=== PATIENT | female | born 1945 | race Caucasian/White ===

== ENCOUNTER 2017-12-16 07:55 | Inpatient (IN) | payer MEDICARE ==
[~2017-12-16] VITALS: Ht 162.6 cm; Wt 68.5 kg
[~2017-12-16 07:55] MED LIST: ECHI400C16 PO; LYSI500C3 PO; MULT-1335 PO; OMEP-218 PO; VIT1CAPS33 PO; VITA-192 PO; [UNRECOGNIZED DRUG - CODE] PO; [UNRECOGNIZED DRUG - CODE] PO
--- NOTE | 2017-12-16 08:15 | ER Report ---
History and Physical Time Seen By MD: 08:05 Hx. of Stated Complaint: PATIENT REPORTS THAT SHE HAS HAD SHORTNESS OF BREATH SINCE LAST SUMMER. IT COMES AND GOES BUT TODAY IT IS REALLY BAD HPI/ROS CHIEF COMPLAINT: Shortness of breath HISTORY OF PRESENT ILLNESS: 9-year-old female comes emergency Department today with a complaint of shortness of breath. Patient states for the last 4-6 months she's been having worsening exertional dyspnea mild orthopnea and some PND. Patient states was 2 or 3 days she can barely walk up a flight of stairs and appendectomy more progressively short of breath. Patient denies any chest pain nausea vomiting diarrhea fever chills. Patient states that as the days roll forward she experiences shortness of breath with both exertion and with rest she says that when she tries to take care of versus and walk to the bar and she could barely get there without having to stop and catch her breath she winces sometimes when she sitting watching TV she gets short of breath this become far more frequent. Again no associated chest pain or additional complaints noted. REVIEW OF SYSTEMS: Respiratory: No cough, has dyspnea. Cardiovascular: No chest pain, no palpitations. Gastrointestinal: No vomiting, no abdominal pain. Musculoskeletal: No back pain. Allergies: Coded Allergies: nitrofurazone (Verified Adverse Reaction, Severe, FINGER SWELLS, EYES ITCH , 01/17/13) Home Meds Reported Medications Vit C/Vit E/Lutein/Min/[place]-3 (Ocuvite Softgel) 1 Each Capsule, 1 EACH PO QDAY 01/17/13 Cyanocobalamin (B12 Health Booster) 1,000 Mcg/15 Ml Oral.susp, 1000 MCG PO QDAY 01/17/13 Echinacea (Echinacea) 400 Mg Capsule, 400 MG PO BID 01/17/13 Vitamin E (Vitamin E) 400 Unit Capsule, 400 UNIT PO QDAY 01/17/13 Lysine (L-Lysine) 500 Mg Capsule, 500 MG PO BID 01/17/13 Biotin (BIOTIN (PT OWN)) 300 Mcg Tab, 300 MCG PO QDAY 01/17/13 Multivitamins W-Minerals (Multiple Vitamin) 1 Tab Tablet, 1 TAB PO QDAY 01/17/13 Omeprazole Magnesium (Prilosec Otc) 20 Mg Tablet.dr, 20 MG PO QDAY 01/17/13 Reviewed Nurses Notes: Yes Old Medical Records Reviewed: Yes Hx Substance Use Disorder: No Hx Alcohol Use: No Constitutional Vital Sign - Last 24 Hours 12/16/17 12/16/17 07:58 08:05 Temp 98.1 Pulse 92 Resp 24 Pulse Ox 70 O2 Delivery Room Air O2 Flow Rate 2.0 Physical Exam General Appearance: [The patient is alert, has no immediate need for airway protection and no current signs of toxicity.] [ ] Eyes: Pupils equal and round no injection. Respiratory: Chest is non tender, lungs are clear to auscultation. Cardiac: regular rate and rhythm [ ] Gastrointestinal: Abdomen is soft and non tender, no masses, bowel sounds normal. Musculoskeletal: Neck: Neck is supple and non tender. Extremities have full range of motion and are non tender. Skin: No rashes or lesions. [ ] DIFFERENTIAL DIAGNOSIS: After history and physical exam differential diagnosis was considered for pulmonary emboli congestive heart failure myocardial infarction pneumonia pneumothoraces aortic dissection Medical Decision Making Data Points Result Diagram: 12/16/17 0812/16/17 0805 Laboratory Hematology Test 12/16/17 08:05 Red Blood Count 4.42 M/uL (4.17-5.56) Mean Corpuscular Volume 92.4 fL (80.0-96.0) Mean Corpuscular Hemoglobin 31.3 pg (26.0-33.0) Mean Corpuscular Hemoglobin Concent 33.9 g/dL (32.0-36.0) Red Cell Distribution Width 13.1 % (11.5-14.5) Mean Platelet Volume 7.6 fL (7.2-11.1) Neutrophils (%) (Auto) 65.4 % (39.4-72.5) Lymphocytes (%) (Auto) 24.5 % (17.6-49.6) Monocytes (%) (Auto) 7.0 % (4.1-12.4) Eosinophils (%) (Auto) 1.9 % (0.4-6.7) Basophils (%) (Auto) 1.2 % (0.3-1.4) Nucleated RBC Relative Count (auto) 0.1 /100WBC Neutrophils # (Auto) 4.3 K/uL (2.0-7.4) Lymphocytes # (Auto) 1.6 K/uL (1.3-3.6) Monocytes # (Auto) 0.5 K/uL (0.3-1.0) Eosinophils # (Auto) 0.1 K/uL (0.0-0.5) Basophils # (Auto) 0.1 K/uL (0.0-0.1) Nucleated RBC Absolute Count (auto) 0.01 K/uL Sodium Level 141 mmol/L (137-145) Potassium Level 3.9 mmol/L (3.5-5.0) Chloride Level 104 mmol/L (98-107) Carbon Dioxide Level 26 mmol/L (22-31) Blood Urea Nitrogen 15 mg/dl (7-18) Creatinine 0.80 mg/dl (0.52-1.04) Glomerular Filtration Rate Calc > 60.0 Random Glucose 97 mg/dl (75-110) Calcium Level 9.3 mg/dl (8.4-10.2) Total Bilirubin 0.7 mg/dl (0.2-1.3) Aspartate Amino Transf (AST/SGOT) 36 U/L (0-35) Alanine Aminotransferase (ALT/SGPT) 55 U/L (0-56) Alkaline Phosphatase 79 U/L (0-126) Troponin I 0.015 ng/ml B-Type Natriuretic Peptide 379 pg/ml (0-100) Total Protein 6.7 gm/dl (6.3-8.2) Albumin 4.0 g/dl (3.5-5.0) Chemistry Test 12/16/17 08:05 White Blood Count 6.6 k/uL (4.5-11.0) Red Blood Count 4.42 M/uL (4.17-5.56) Hemoglobin 13.8 g/dL (12.0-16.0) Hematocrit 40.8 % (34.0-47.0) Mean Corpuscular Volume 92.4 fL (80.0-96.0) Mean Corpuscular Hemoglobin 31.3 pg (26.0-33.0) Mean Corpuscular Hemoglobin Concent 33.9 g/dL (32.0-36.0) Red Cell Distribution Width 13.1 % (11.5-14.5) Platelet Count 226 K/uL (150-450) Mean Platelet Volume 7.6 fL (7.2-11.1) Neutrophils (%) (Auto) 65.4 % (39.4-72.5) Lymphocytes (%) (Auto) 24.5 % (17.6-49.6) Monocytes (%) (Auto) 7.0 % (4.1-12.4) Eosinophils (%) (Auto) 1.9 % (0.4-6.7) Basophils (%) (Auto) 1.2 % (0.3-1.4) Nucleated RBC Relative Count (auto) 0.1 /100WBC Neutrophils # (Auto) 4.3 K/uL (2.0-7.4) Lymphocytes # (Auto) 1.6 K/uL (1.3-3.6) Monocytes # (Auto) 0.5 K/uL (0.3-1.0) Eosinophils # (Auto) 0.1 K/uL (0.0-0.5) Basophils # (Auto) 0.1 K/uL (0.0-0.1) Nucleated RBC Absolute Count (auto) 0.01 K/uL Glomerular Filtration Rate Calc > 60.0 Calcium Level 9.3 mg/dl (8.4-10.2) Total Bilirubin 0.7 mg/dl (0.2-1.3) Aspartate Amino Transf (AST/SGOT) 36 U/L (0-35) Alanine Aminotransferase (ALT/SGPT) 55 U/L (0-56) Alkaline Phosphatase 79 U/L (0-126) Troponin I 0.015 ng/ml B-Type Natriuretic Peptide 379 pg/ml (0-100) Total Protein 6.7 gm/dl (6.3-8.2) Albumin 4.0 g/dl (3.5-5.0) ED Course/Re-evaluation ED Course ED clinical course medical decision-making 9-year-old female comes in without his hypoxia with a pulse oximetry of 71% labs demonstrate an elevated BNP and 370 range chest x-ray was performed showed some thickening and interstitial pulmonary area CT angiogram concerning for PE as well as other etiologies showed increased. Hilar and pulmonary thickening of the interstitial markings and lining consistent with probable pulmonary fibrosis could have an element of pulmonary hypertension could be a possible infectious etiology started antibiotics in the emergency department. I do hypoxia undiagnosed CHF exertional dyspnea and abnormal lab findings as as well as abnormal imaging findings patient be admitted hypoxia as a diagnosis unclear etiology undiagnosed hypertension and undiagnosed congestive heart failure Decision to Disposition Date: Dec 16, 2017 Decision to Disposition Time: 10:27 Depart Departure Latest Vital Signs Vital Signs Date Time Temp Pulse Resp B/P (MAP) Pulse Ox O2 Delivery O2 Flow Rate FiO2 12/16/17 08:05 2.0 12/16/17 07:58 98.1 92 24 70 Room Air Impression: Primary Impression: Hypoxia Additional Impression: Pulmonary fibrosis Condition: Improved Disposition: Admitted from ER Referrals: DEDRICK VINSON POLITICAL WORKER (PCP) Problem Qualifiers AJIT LEOS MD Dec 16, 2017 08:15
--- NOTE | 2017-12-16 08:22 | EKG ---
FACILITY: [facility] - [place] PATIENT NAME: KENNEDY PAUL : [id number] MR: [id number] V: [id number] EXAM DATE: ORDERING PHYSICIAN: AJIT LEOS TECHNOLOGIST: Test Reason : Blood Pressure : / mmHG Vent. Rate : 067 BPM Atrial Rate : 067 BPM P-R Int : 132 ms QRS Dur : 094 ms QT Int : 432 ms P-R-T Axes : 070 076 053 degrees QTc Int : 456 ms Sinus rhythm Possible Left atrial enlargement Nonspecific ST abnormality Abnormal ECG No previous ECGs available Confirmed by MONIQUE PAVON ([id number]) on 12/16/2017 7:32:32 PM Referred By: Confirmed By:MONIQUE PAVON
[2017-12-16 08:25] LABS: PLATELET COUNT, AUTOMATED 226 K/uL (150-450)
[2017-12-16] MEDS ORDERED: NS 0.9% 150 ML BAG 150 ML ONE (08:42)
[2017-12-16] MEDS ORDERED: IOPAMIDOL 76% 75 ML INFUS BTL 75 ML ONE (08:42)
--- NOTE | 2017-12-16 09:03 | RADIOLOGY IMAGING REPORT ---
FACILITY: [facility] - [place] PATIENT NAME: Lemuel Marroquin : 1945 MR: [id number] V: [id number] EXAM DATE: ORDERING PHYSICIAN: AJIT LEOS TECHNOLOGIST: Location: [facility] Patient: Lemuel Marroquin : 1945 Visit/Account:[id number] Date of Sevice: 12/16/2017 Exam type: CHEST PA AND LAT History: Comparison: None. Findings: There is hyperinflation lung phoenix which can be seen with COPD. Prominent interstitial markings are seen throughout the lungs. There is mild blunting of the right costophrenic angle. Mild peribronch ial thickening noted bilaterally particular prominent in the lower lobes. The cardiac silhouette is mildly enlarged. IMPRESSION: 1. Hyperinflation lung phoenix which can be seen with COPD Interstitial prominence is noted throughout the lungs. There are no prior studies available for harrison welch. The differential diagnosis includes chronic interstitial fibrosis versus an acute interstiti al process such as pulmonary edema or interstitial pneumonia Mildly blunted right costophrenic angle consistent with pleural thickening versus small right pleural effusion Peribronchial thickening bilaterally particular prominent the lower lobes. Again the differential di agnosis includes both acute and chronic etiologies Mild cardiomegaly Report Dictated By: Stacie Sandoval MD at 12/16/2017 8:55 AM Report E-Signed By: Stacie Sandoval MD at 12/16/2017 8:58 AM WSN:[email or web address]
--- NOTE | 2017-12-16 09:42 | RADIOLOGY IMAGING REPORT ---
FACILITY: [facility] - [place] PATIENT NAME: Lemuel Marroquin : 1945 MR: [id number] V: [id number] EXAM DATE: ORDERING PHYSICIAN: AJIT LEOS TECHNOLOGIST: Location: [facility] - [place] Patient: Lemuel Marroquin : 1945 Visit/Account:[id number] Date of Sevice: 12/16/2017 CTA CHEST WW/O CNTR (PULM ANG) HISTORY: hypoxia ADDITIONAL HISTORY: None. TECHNIQUE: CTA chest with intravenous contrast. Axial imaging acquired following administration of IV contrast timed for maximum opacification of the pulmonary arterial vasculature. Slab 3-D MIP kelsey nstructed images were also created for further evaluation and interpretation. Reconstruction of the [facility] data set includes multiplanar 2-D in the sagittal and coronal planes and 3-D reconstructed fernandez nal slab MIP series. 3-D images were created by the technologist. Dose Lowering Technique One of the following dose optimization techniques was utilized in the performance of this exam: Autom ated exposure control; adjustment of the mA and/or kV according to the patient's size; or use of an i terative reconstruction technique. Specific details can be referenced in the facility's radiology C T exam operational policy. CONTRAST: 75 mL Isovue-370 COMPARISON: Two view chest performed earlier today FINDINGS: Lungs/pleura: There is interstitial prominence seen throughout the lungs more prominent in the upper lung zones. Septal thickening is seen in the lower lobes. Small bilateral pleural effusions Heart/vessels: Mild cardiac enlargement. No filling defects are identified in the visualized portio n of the pulmonary arterial tree. Mediastinum/lymph nodes: Negative. Visualized upper abdomen: Subcentimeter hypodensity right lobe of the liver too small to characteriz e Bones/soft tissues: Mild spondylotic changes of the thoracic spine. Increased breast tissue in the right central breast relative to the left. A similar finding was present on the prior mammogram from February 12, 2017 Additional findings: None IMPRESSION: No evidence of pulmonary emboli. Small bilateral pleural effusions Mild cardiac enlargement Interstitial prominence of the lungs most prominent in the upper lung zones. There are no prior stud ies available for comparison and therefore this could represent chronic interstitial scarring althoug h possibility of interstitial pneumonia or interstitial pulmonary edema not excluded particularly in light of the mild cardiac enlargement and small bilateral pleural effusions. Septal thickening in the lower lobes likely chronic Increased breast tissue in the right central breast relative to the left a similar finding was seen o n a prior mammogram from February 12, 2017 Report Dictated By: Stacie Sandoval MD at 12/16/2017 9:27 AM Report E-Signed By: Stacie Sandoval MD at 12/16/2017 9:38 AM DONTAEN:[email or web address]
[2017-12-16] MEDS ORDERED: LEVOFLOXACIN/D5W*500 MG/100 ML 100 ML IVPB ONE (10:05)
[2017-12-16 12:05] VITALS: BP 176/108
[2017-12-16] MEDS ORDERED: FLUSH 10 ML SYR IVP PRN (12:05)
--- NOTE | 2017-12-16 12:25 | History & Physical ---
History of Present Illness Chief Complaint Short of breath History of Present Illness 72yo female with very little PMHx. She reports onset of some dyspnea/dizziness with activities last summer. No CP or palpitations. She works as a leatherworker and ranching activities. She was in [place] for the past two months and developed a cough productive of yellow sputum. She also had worsening dyspnea especially with activities. She denies any obvious fevers or chills. She has had "hot flashes" and night sweats for quite some time ( preceding theses recent events). She has mild lower extremity edema that seemed to be worse while she was in [place]. She was seen in an Urgent Care clinic while in [place] and was treated symptomatically. She presented to the ER today and was found to be hypoxic with evidence of interstitial prominence on her CXR an dCT pulmonary angiogram. Her WBC count is in normal range. Her BNP is elevated at 379 and her troponin was 0.015. She was recommended for admission. History Problems: (1) Osteoarthritis (2) History of appendectomy (3) History of tonsillectomy (4) History of tubal ligation Home Meds Reported Medications Vit C/Vit E/Lutein/Min/[place]-3 (Ocuvite Softgel) 1 Each Capsule, 1 EACH PO QDAY 01/17/13 Cyanocobalamin (B12 Health Booster) 1,000 Mcg/15 Ml Oral.susp, 1000 MCG PO QDAY 01/17/13 Echinacea (Echinacea) 400 Mg Capsule, 400 MG PO BID 01/17/13 Vitamin E (Vitamin E) 400 Unit Capsule, 400 UNIT PO QDAY 01/17/13 Lysine (L-Lysine) 500 Mg Capsule, 500 MG PO BID 01/17/13 Biotin (BIOTIN (PT OWN)) 300 Mcg Tab, 300 MCG PO QDAY 01/17/13 Multivitamins W-Minerals (Multiple Vitamin) 1 Tab Tablet, 1 TAB PO QDAY 01/17/13 Omeprazole Magnesium (Prilosec Otc) 20 Mg Tablet.dr, 20 MG PO QDAY 01/17/13 Allergies: Coded Allergies: nitrofurazone (Verified Adverse Reaction, Severe, FINGER SWELLS, EYES ITCH , 01/17/13) Patient History: Coronary artery disease FATHER FH: diabetes mellitus FATHER Other Social/Family Hx . Hx Smoking: No Exposure to Second Hand Smoke?: Yes Hx Alcohol Use: Yes Alcohol Use: Currently Alcohol Used: Wine Review of Systems Constitutional: Weight Gain, Night Sweats, No Fever, No Chills Neurological: Dizziness Cardiovascular: Other (chest tightness with activities/deep breathing), No Chest Pain Respiratory: Shortness of Breath, Cough Exam Vital Signs Vital Signs Date Time Temp Pulse Resp B/P (MAP) Pulse Ox O2 Delivery O2 Flow Rate FiO2 12/16/17 11:15 73 12 177/107 (130) 95 12/16/17 08:05 2.0 12/16/17 07:58 98.1 Room Air General Appearance: Alert, Awake Neuro: No Gross deficits Neck: No Masses, Other (soft bruit on right carotid) Cardiovascular: Regular Rate and Rhythm Respiratory: Other (rales at both bases/no wheezes) Chest: No Tenderness GI: Abd Soft and Non-Tender Extremities: Warm, Perfused, Edema (trace both LE) Psych: Alert & Oriented X3 Medical Decision Making Data Points Result Diagram: 12/16/17 0805 12/16/17 0805 Item Value Date Time B-Type Natriuretic Peptide 379 pg/ml H 12/16/17 0805 Albumin 4.0 g/dl 12/16/17 0805 Total Protein 6.7 gm/dl 12/16/17 0805 Troponin I 0.015 ng/ml 12/16/17 0805 Alkaline Phosphatase 79 U/L 12/16/17 0805 Alanine Aminotransferase (ALT/SGPT) 55 U/L 12/16/17 0805 Aspartate Amino Transf (AST/SGOT) 36 U/L H 12/16/17 0805 Total Bilirubin 0.7 mg/dl 12/16/17 0805 Calcium Level 9.3 mg/dl 12/16/17 0805 EKG / Imaging EKG Interpretation Sinus rhythm. Possible biatrial enlargement. Poor R wave progression anteriorly. Nonspecific ST findings lateral leads. Imaging PATIENT NAME: Lemuel Marroquin : 1945 MR: [id number] V: [id number] EXAM DATE: ORDERING PHYSICIAN: AJIT LEOS TECHNOLOGIST: Location: [facility] Patient: Lemuel Marroquin : 1945 Visit/Account:[id number] Date of Sevice: 12/16/2017 Exam type: CHEST PA AND LAT History: Comparison: None. Findings: There is hyperinflation lung phoenix which can be seen with COPD. Prominent interstitial markings are seen throughout the lungs. There is mild blunting of the right costophrenic angle. Mild peribronchial thickening noted bilaterally particular prominent in the lower lobes. The cardiac silhouette is mildly enlarged. IMPRESSION: 1. Hyperinflation lung phoenix which can be seen with COPD Interstitial prominence is noted throughout the lungs. There are no prior studies available for comparison. The differential diagnosis includes chronic interstitial fibrosis versus an acute interstitial process such as pulmonary edema or interstitial pneumonia Mildly blunted right costophrenic angle consistent with pleural thickening versus small right pleural effusion Peribronchial thickening bilaterally particular prominent the lower lobes. Again the differential diagnosis includes both acute and chronic etiologies Mild cardiomegaly Report Dictated By: Stacie Sandoval MD at 12/16/2017 8:55 AM Report E-Signed By: Stacie Sandoval MD at 12/16/2017 8:58 AM WSN:[email or web address] PATIENT NAME: Lemuel Marroquin : 1945 MR: [id number] V: [id number] EXAM DATE: [id number] ORDERING PHYSICIAN: AJIT LEOS TECHNOLOGIST: Location: [facility] Patient: Lemuel Marroquin : 1945 Visit/Account:[id number] Date of Sevice: 12/16/2017 CTA CHEST WW/O CNTR (PULM ANG) HISTORY: hypoxia ADDITIONAL HISTORY: None. TECHNIQUE: CTA chest with intravenous contrast. Axial imaging acquired following administration of IV contrast timed for maximum opacification of the pulmonary arterial vasculature. Slab 3-D MIP reconstructed images were also created for further evaluation and interpretation. Reconstruction of the source data set includes multiplanar 2-D in the sagittal and coronal planes and 3-D reconstructed coronal slab MIP series. 3-D images were created by the technologist. Dose Lowering Technique One of the following dose optimization techniques was utilized in the performance of this exam: Automated exposure control; adjustment of the mA and/ or kV according to the patient's size; or use of an iterative reconstruction technique. Specific details can be referenced in the facility's radiology CT exam operational policy. CONTRAST: 75 mL Isovue-370 COMPARISON: Two view chest performed earlier today FINDINGS: Lungs/pleura: There is interstitial prominence seen throughout the lungs more prominent in the upper lung zones. Septal thickening is seen in the lower lobes. Small bilateral pleural effusions Heart/vessels: Mild cardiac enlargement. No filling defects are identified in the visualized portion of the pulmonary arterial tree. Mediastinum/lymph nodes: Negative. Visualized upper abdomen: Subcentimeter hypodensity right lobe of the liver too small to characterize Bones/soft tissues: Mild spondylotic changes of the thoracic spine. Increased breast tissue in the right central breast relative to the left. A similar finding was present on the prior mammogram from February 12, 2017 Additional findings: None IMPRESSION: No evidence of pulmonary emboli. Small bilateral pleural effusions Mild cardiac enlargement Interstitial prominence of the lungs most prominent in the upper lung zones. There are no prior studies available for comparison and therefore this could represent chronic interstitial scarring although possibility of interstitial pneumonia or interstitial pulmonary edema not excluded particularly in light of the mild cardiac enlargement and small bilateral pleural effusions. Septal thickening in the lower lobes likely chronic Increased breast tissue in the right central breast relative to the left a similar finding was seen on a prior mammogram from February 12, 2017 Report Dictated By: Stacie Sandoval MD at 12/16/2017 9:27 AM Report E-Signed By: Stacie Sandoval MD at 12/16/2017 9:38 AM WSN:[email or web address] Assessment and Plan Problems: (1) Hypoxia Status: Acute Assessment & Plan: Multiple etiologies exist. She may have coccidiomycosis with hypoxia vs. possible pulmonary edema with decreased LV function/pulmonary HTN vs. interstitial lung disease. Will admit for further evaluation and treatment. Check coccidiomycosis IgG and IgM antibodies. Check echocardiogram to evaluate LV function/pulmonary artery pressures. Will also check serial troponins. Further evaluation/treatment pending results. (2) Right carotid bruit Status: Chronic Assessment & Plan: Will check carotid ultrasound. Copies to: DEDRICK VINSON Venous Thromboembolism Antithrombotics Is Pt On Any Antithrombotics?: Yes Exam Sepsis Risk: No Definite Risk MONIQUE PAVON MD Dec 16, 2017 12:25
[2017-12-16] MEDS ORDERED: ACET500T68 PO (13:18)
[2017-12-16] MEDS ORDERED: NAPR220C12 PO (13:18)
--- NOTE | 2017-12-16 13:33 | RADIOLOGY IMAGING REPORT ---
FACILITY: [facility] - [place] PATIENT NAME: Lemuel Marroquin : 1945 MR: [id number] V: [id number] EXAM DATE: ORDERING PHYSICIAN: MONIQUE PAVON TECHNOLOGIST: Location: [facility] - [place] Patient: Lemuel Marroquin : 1945 Visit/Account:[id number] Date of Sevice: 12/16/2017 CAROTID HISTORY: right carotid bruit COMPARISON: None. FINDINGS: Grayscale, duplex and color Doppler interrogation of the extracranial carotid and vertebral arteries was performed bilateral. On the right, peak systolic velocities within the common and internal carotid arteries are 89 and 121 cm/sec respectively. There appears be mild narrowing in the mid right internal carotid artery secon mala to soft plaque. Antegrade flow within the common, internal and external carotid arteries as wel l as vertebral artery. ICA/CCA ratio 2.1. On the left, peak systolic velocities within the common and internal carotid arteries are 90 and 102 cm/sec respectively. No significant plaque identified. Antegrade flow within the common, internal a nd external carotid arteries as well as vertebral artery. ICA/CCA ratio 1.5. IMPRESSION: There appears be mild narrowing in the mid right internal carotid artery secondary to soft plaque alt cornel no hemodynamically significant lesions are identified by velocity criteria Velocity criteria are extrapolated from diameter data as defined by the Society of Radiologists in Ul trasound Consensus Conference Radiology 2003; 229;340-346 Report Dictated By: Stacie Sandoval MD at 12/16/2017 1:26 PM Report E-Signed By: Stacie Sandoval MD at 12/16/2017 1:28 PM WSN:[email or web address]
[2017-12-16 16:12] VITALS: BP 144/96
[2017-12-16] MEDS ORDERED: FUROSEMIDE 20 MG/2 ML VIAL IVP ONE (17:30)
[2017-12-16] MEDS ORDERED: METOPROLOL SUCC XL 25 MG TABCR PO ONE (17:30)
--- NOTE | 2017-12-16 18:48 | Miscellaneous Provider Note ---
Miscellaneous Provider Note Note Preliminary echocardiogram results per Dr. Garcia: pulmonary HTN, borderline severe to severe MR, significant diastolic dysfunction, normal EF, no significant wall motion abnormalities. Will start on metoprolol ext release 25mg daily, try some diuresis with Lasix 10mg IV today. She will need to see cardiology as well. MONIQUE PAVON MD Dec 16, 2017 18:48
[2017-12-16 19:31] VITALS: BP 169/91
--- NOTE | 2017-12-16 20:17 | EKG ---
FACILITY: [facility] [place] PATIENT NAME: KENNEDY PAUL : [id number] MR: [id number] V: [id number] EXAM DATE: ORDERING PHYSICIAN: MONIQUE PAVON TECHNOLOGIST: NEIL Test Reason : IRR HR Blood Pressure : / mmHG Vent. Rate : 127 BPM Atrial Rate : 300 BPM P-R Int : 000 ms QRS Dur : 094 ms QT Int : 342 ms P-R-T Axes : 000 067 -70 degrees QTc Int : 497 ms Atrial fibrillation with rapid ventricular response Poor R wave progression anteriorly Diffuse ST-T changes Abnormal ECG Confirmed by MONIQUE PAVON ([id number]) on 12/17/2017 5:13:44 AM Referred By: Confirmed By:MONIQUE PAVON
[2017-12-16] MEDS ORDERED: NS(*) 0.9% 500 ML BAG 500 ML ONE (20:44)
[2017-12-16] MEDS: NAPROXEN 375 MG TAB PO PRN (20:56)
[2017-12-16] MEDS: ACETAMINOPHEN 325 MG TAB PO PRN (20:56)
[2017-12-16] MEDS: PANTOPRAZOLE SOD 40 MG TABEC PO SCH (20:56)
[2017-12-16] MEDS: DILTIAZEM HCL* 100 MG ADDVIAL 100 MG in NS(*) 0.9% 100 ML ADDVANT BAG 100 ML IV SCH (20:57)
[2017-12-16 22:00] VITALS: BP 119/98
[2017-12-16 23:00] VITALS: BP 131/93
[2017-12-17] VITALS (12 sets, daily range): BP systolic 74–147; BP diastolic 58–102; Ht 162.6 cm; Wt 68.5 kg
[2017-12-17] MEDS: DILTIAZEM HCL* 100 MG ADDVIAL 100 MG in NS(*) 0.9% 100 ML ADDVANT BAG 100 ML IV SCH (03:48)
[2017-12-17 06:12] LABS: PLATELET COUNT, AUTOMATED 227 K/uL (150-450)
[2017-12-17] MEDS: PANTOPRAZOLE SOD 40 MG TABEC PO SCH ×2 (08:49→20:21)
[2017-12-17] MEDS ORDERED: METOPROLOL SUCC XL 25 MG TABCR PO SCH (09:00)
[2017-12-17] MEDS ORDERED: ENOXAPARIN 40 MG/0.4ML SYR SC SCH (09:00)
[2017-12-17] MEDS ORDERED: DILTIAZEM CD 120 MG CAPCR PO SCH (09:00)
[2017-12-17] MEDS: RIVAROXABAN 10 MG TAB PO SCH (09:39)
--- NOTE | 2017-12-17 12:18 | Hospitalist Progress Note ---
Subjective Progress Notes Subjective This patient was admitted for shortness of breath. She developed atrial fibrillation overnight. Patient Complains of: Cardiovascular: No: Chest Pain Respiratory: No: Shortness of Breath Physical Exam Vital Signs Date Time Temp Pulse Resp B/P (MAP) Pulse Ox O2 Delivery O2 Flow Rate FiO2 12/17/17 11:33 98.4 76 14 93 Nasal Cannula 1.0 86 12/17/17 10:50 116/85 (95) Intake and Output 12/18/17 07:00 Intake Total 392 ml Balance 392 ml Intake Oral 240 ml IV Total 152 ml # Voids 1 Cardiovascular: No Edema, No JVD, Other (Irregular rhythm.) Respiratory: Clear to Auscultation Integumentary: No Cyanosis Result Diagram: 12/17/17 0531 12/17/17 0531 Item Value Date Time Thyroid Stimulating Hormone (TSH) 2.34 uIU/ml 12/17/17 0531 Troponin I 0.014 ng/ml 12/16/17 1902 Troponin I 0.021 ng/ml 12/16/17 1316 B-Type Natriuretic Peptide 379 pg/ml H 12/16/17 0805 Assessment and Plan Problems: (1) Acute systolic right heart failure Assessment & Plan: She did present with increased shortness of breath and pleural effusions. Her BNP was elevated and an echocardiogram is reported to show a preserved left ventricular ejection fraction. She has responded to treatment with Lasix. (2) Moderate to severe pulmonary hypertension Assessment & Plan: Her echocardiogram is pending an official report, but is reported to show severe pulmonary hypertension. (3) Mitral regurgitation Assessment & Plan: Her echocardiogram is reported to show severe mitral regurgitation. We will ask that cardiology evaluate her tomorrow. (4) Atrial fibrillation with rapid ventricular response Assessment & Plan: She did require a diltiazem infusion overnight, but we were able to convert her to oral diltiazem today. She has also been started on Xarelto. Exam Sepsis Risk: No Definite Risk JAIRON CHÁVEZ DO Dec 17, 2017 12:18
[2017-12-17] MEDS ORDERED: MELATONIN 3 MG TAB PO PRN (14:15)
[2017-12-17] MEDS ORDERED: INFLUENZA VIRUS VAC 0.5 ML SYR IM ONLY ONE (16:00)
[2017-12-17] MEDS: NAPROXEN 375 MG TAB PO PRN (20:19)
[2017-12-17] MEDS: ACETAMINOPHEN 325 MG TAB PO PRN (20:20)
--- NOTE | 2017-12-17 21:43 | RADIOLOGY IMAGING REPORT ---
FACILITY: PATIENT NAME: KENNEDY PAUL : [id number] MR: [id number] V: [id number] EXAM DATE: ORDERING PHYSICIAN: MONIQUE PAVON TECHNOLOGIST: Alexis Moreau EXAMINATION:TWO-DIMENSIONAL ECHOCARDIOGRAPH REASON:SOB/POSSIBLE PULMONARY EDEMA 2D Measurements (normal values in centimeters) LV endLV endRV endVent.LV PostAorticLeftPercent DiastolicSystolicDiastolicSeptumWallRootAtriumShortening (3.5-5.7)(0.9-2.6)(0.6-1.1)(0.6-1.1)(2.0-3.7)(1.9-4.0)(25-35%) [id number]% STROKE VOLUME: 67% ESTIMATED EJECTION FRACTION:63% PARASTERNAL LONG AXIS: Left ventricular systolic function appears to be normal. Right ventricle appears to be mildly enlarged. Left atrium appears to be severely enlarged. The aortic valve is sclerotic. Mitral valve appears to open normally. No wall motion abnormalities are noted. Color examination of the mitral valve revealed some mitral insufficiency. Color examination of the aortic valve was unremarkable. PARASTERNAL SHORT AXIS: Overall left ventricular systolic function again appears to be normal. No wall motion abnormalities are noted. Aortic valve was difficult to see but probably is trileaflet in configuration. Color examination of the aortic valve was unremarkable. Color examination of the pulmonic valve was also unremarkable. The pulmonic valve was not well seen. Color examination of the tricuspid valve reveals some tricuspid insufficiency. APICAL FOUR AND TWO CHAMBER: Right sided heart chambers appear to be enlarged. Left atrium appears to be severely enlarged. The left ventricle is normal in size. Color examination of the mitral valve reveals moderate to borderline severe amount of mitral insufficiency. Mitral valve area was measured within normal ranges at 4.4cm2. Regurgitant volume was 997ml. Regurgitant fraction was 45% & effective regurgitant orifice was .55. Aortic valve was measured at the lower range of normal at 1.8cm2 with a mean pressure gradient across the valve of 4mm Hg & a dimensionless index of .6. Left atrial volume is severely increased at 76ml/m2. Right atrial volume is upper range of normal at 31ml/m2. The tricuspid regurgitation Vmax measured 3.75m/sec. Color examination of the tricuspid valve reveals a mild to moderate amount of tricuspid insufficiency present. SUBCOSTAL VIEW: No pericardial effusion was noted. No atrioseptal or ventriculoseptal defects were appreciated. Doppler examination of the mitral valve in diastole does reveal the E wave more than twice the velocity of the A wave suggesting significant decrease in diastolic function. IVC is normal in size. OVERALL IMPRESSION: 1. Normal left ventricular ejection fraction of 63% with a severe decrease in diastolic function. 2. Mild right ventricular & right atrial enlargement and severe left atrial enlargement. The left ventricle is normal in size. 3. A trileaflet aortic valve with mild aortic sclerosis but no stenosis. The valve area is measured at the lower range of normal at 1.8cm2. No aortic insufficiency was noted. 4. Mild to moderate amount of tricuspid insufficiency with estimated right ventricular systolic pressures of 64mm Hg which does include an estimated right atrial pressure of 8mm Hg indicating severe pulmonary hypertension & increased right ventricular systolic pressures. 5. A severe amount of mitral insufficiency. No mitral stenosis is noted. Dictated by: Jesus Manuel Garcia M.D. on 12/16/2017 at 16:14 Transcribed by: CRISTOBAL on 12/17/2017 at 10:32 Approved by: Jesus Manuel Garcia M.D. on 12/17/2017 at 21:41 [facility]
[2017-12-18 03:02] VITALS: BP 122/88
[2017-12-18 07:49] VITALS: BP 128/88
[2017-12-18] MEDS: RIVAROXABAN 10 MG TAB PO SCH (09:23)
[2017-12-18] MEDS: PANTOPRAZOLE SOD 40 MG TABEC PO SCH (09:23)
[2017-12-18] MEDS ORDERED: ENOX100D5 SQ (12:00)
[2017-12-18] MEDS ORDERED: DILT-145 PO (12:00)
[2017-12-18] MEDS ORDERED: WARF5TAB23 PO (12:00)
--- NOTE | 2017-12-18 12:21 | Hospitalist Depart ---
Discharge Summary Reason for Hosp/Final Diag: (1) Acute systolic right heart failure Hospital Course & Plan: She did present with increased shortness of breath and small pleural effusions. Her BNP was elevated and an echocardiogram is reported to show a preserved left ventricular ejection fraction. It was likely due to intermittent atrial fibrillation with RVR and the severe MR. She has responded one dose of IV Lasix. She will be sent home with instructions to check weight daily, fluid restrict and no added salt diet. If her weight does increase, or develops worsening SOB then she will likely need to be on a chronic diuretic. (2) Mitral regurgitation Hospital Course & Plan: Her echocardiogram is reported to show severe mitral regurgitation. She has a preserved EF, but severe enlargement of the LA. Dr. Zee has reviewed the echo and recommended that she be seen as an outpatient next week in his clinic. (3) Atrial fibrillation with rapid ventricular response Hospital Course & Plan: She went into atrial fibrillation with RVR while in the hospital, but suspect she was getting it intermittently as an outpatient. She did require a diltiazem infusion, but we were able to convert her to oral diltiazem. She is still in atrial fibrillation, but rate controlled. She was started on Xarelto, but she doesn't have medication coverage with Medicare. We will switch her to Warfarin 5mg a day. She will be bridged with Lovenox at 1.5mg/kg/day for 3 days. INR on 12/21. I have spoken to her PCP's clinic and they are aware of the admission and will be following the INR. (4) Moderate to severe pulmonary hypertension Hospital Course & Plan: This is consistent with the severe MR. See above. Departure Weight (Pounds): 163 Result Diagram: 12/17/1753012/17/17530 Item Value Date Time White Blood Count 6.6 k/uL 12/16/17 08 White Blood Count 5.5 k/uL 12/17/17 05 Hematocrit 40.8 % 12/16/17 08 Hematocrit 40.4 % 12/17/17 05 Platelet Count 226 K/uL 12/16/17 08 Platelet Count 227 K/uL 12/17/17 0531 Troponin I 0.015 ng/ml 12/16/17 08 Aspartate Amino Transf (AST/SGOT) 36 U/L H 12/16/17 0805 Alanine Aminotransferase (ALT/SGPT) 55 U/L 12/16/17 0805 Alkaline Phosphatase 79 U/L 12/16/17 0805 Blood Urea Nitrogen 15 mg/dl 12/16/17 0805 Creatinine 0.80 mg/dl 12/16/17 0805 Sodium Level 141 mmol/L 12/16/17 0805 Potassium Level 3.9 mmol/L 12/16/17 0805 Chloride Level 104 mmol/L 12/16/17 0805 Carbon Dioxide Level 26 mmol/L 12/16/17 0805 B-Type Natriuretic Peptide 379 pg/ml H 12/16/17 0805 Troponin I 0.021 ng/ml 12/16/17 1316 Troponin I 0.014 ng/ml 12/16/17 1902 Thyroid Stimulating Hormone (TSH) 2.34 uIU/ml 12/17/17 0531 Blood Urea Nitrogen 15 mg/dl 12/17/17 0531 Creatinine 0.80 mg/dl 12/17/17 0531 Imaging 12/16/17 Carotid Artery US - There appears be mild narrowing in the mid right internal carotid artery secondary to soft plaque although no hemodynamically significant lesions are identified by velocity criteria Velocity criteria are extrapolated from diameter data as defined by the Society of Radiologists in Ultrasound Consensus Conference Radiology 2003; 229;340-346 12/16/17 Echo - 1. Normal left ventricular ejection fraction of 63% with a severe decrease in diastolic function. 2. Mild right ventricular & right atrial enlargement and severe left atrial enlargement. The left ventricle is normal in size. 3. A trileaflet aortic valve with mild aortic sclerosis but no stenosis. The valve area is measured at the lower range of normal at 1.8cm2. No aortic insufficiency was noted. 4. Mild to moderate amount of tricuspid insufficiency with estimated right ventricular systolic pressures of 64mm Hg which does include an estimated right atrial pressure of 8mm Hg indicating severe pulmonary hypertension & increased right ventricular systolic pressures. 5. A severe amount of mitral insufficiency. No mitral stenosis is noted. 12/16/17 Chest CTA - No evidence of pulmonary emboli. Small bilateral pleural effusions Mild cardiac enlargement Interstitial prominence of the lungs most prominent in the upper lung zones. There are no prior studies available for comparison and therefore this could represent chronic interstitial scarring although possibility of interstitial pneumonia or interstitial pulmonary edema not excluded particularly in light of the mild cardiac enlargement and small bilateral pleural effusions. Septal thickening in the lower lobes likely chronic Increased breast tissue in the right central breast relative to the left a similar finding was seen on a prior mammogram from February 12, 2017 CXR - 1. Hyperinflation lung phoenix which can be seen with COPD Interstitial prominence is noted throughout the lungs. There are no prior studies available for comparison. The differential diagnosis includes chronic interstitial fibrosis versus an acute interstitial process such as pulmonary edema or interstitial pneumonia Mildly blunted right costophrenic angle consistent with pleural thickening versus small right pleural effusion Peribronchial thickening bilaterally particular prominent the lower lobes. Again the differential diagnosis includes both acute and chronic etiologies Mild cardiomegaly EKG Vent. Rate : 067 BPM Atrial Rate : 067 BPM P-R Int : 132 ms QRS Dur : 094 ms QT Int : 432 ms P-R-T Axes : 070 076 053 degrees QTc Int : 456 ms Sinus rhythm Possible Left atrial enlargement Nonspecific ST abnormality Abnormal ECG No previous ECGs available Confirmed by MONIQUE PAVON ([id number]) on 12/16/2017 7:32:32 PM Vent. Rate : 127 BPM Atrial Rate : 300 BPM P-R Int : 000 ms QRS Dur : 094 ms QT Int : 342 ms P-R-T Axes : 000 067 -70 degrees QTc Int : 497 ms Atrial fibrillation with rapid ventricular response Poor R wave progression anteriorly Diffuse ST-T changes Abnormal ECG Confirmed by MONIQUE PAVON ([id number]) on 12/17/2017 5:13:44 AM Condition: Improved Discharge: Home Discharge Instructions Home Meds Active Scripts Warfarin Sodium (WARFARIN SODIUM) 5 Mg Tablet, 5 MG PO HS, #30 TAB Prov:KUSUM LONG MD 12/18/17 Diltiazem Hcl (CARDIZEM CD) 180 Mg Cap.er.24h, 360 MG PO QDAY, #30 Prov:KUSUM LONG MD 12/18/17 Enoxaparin Sodium (LOVENOX) 100 Mg/1 Ml Disp.syrin, 100 MG SQ DAILY, #3 1 Refill Prov:KUSUM LONG MD 12/18/17 Reported Medications Acetaminophen (TYLENOL EXTRA STRENGTH) 500 Mg Tablet, 500 MG PO HS, TAB 12/16/17 Vit C/Vit E/Lutein/Min/[place]-3 (Ocuvite Softgel) 1 Each Capsule, 1 EACH PO QDAY 01/17/13 Cyanocobalamin (B12 Health Booster) 1,000 Mcg/15 Ml Oral.susp, 1000 MCG PO QDAY 01/17/13 Echinacea (Echinacea) 400 Mg Capsule, 400 MG PO BID 01/17/13 Vitamin E (Vitamin E) 400 Unit Capsule, 400 UNIT PO QDAY 01/17/13 Lysine (L-Lysine) 500 Mg Capsule, 500 MG PO BID 01/17/13 Biotin (BIOTIN (PT OWN)) 300 Mcg Tab, 300 MCG PO QDAY 01/17/13 Multivitamins W-Minerals (Multiple Vitamin) 1 Tab Tablet, 1 TAB PO QDAY 01/17/13 Omeprazole Magnesium (Prilosec Otc) 20 Mg Tablet.dr, 20 MG PO QDAY 01/17/13 Discontinued Reported Medications Naproxen Sodium (ALEVE) 220 Mg Capsule, 220 MG PO HS, CAPSULE 12/16/17 Diet: Fluid Restricted, No Added Salt (CARLOS) Special Instructions: INR on 12/21/17. Follow-up with Primary Care Provider (PCP) in 1-2 weeks to follow up this admission. Call Dr. Zee's office to make an appointment for next week to follow up the atrial fibrillation and mitral regurgitation. Check your weight daily. Call your PCP for an increase of 5 pounds from baseline. Drink about 2 quarts of liquid a day. No NSAIDs (i.e. aspirin, naproxen, ibuprofen) because of the increased bleeding risk. Copies to: DEDRICK VINSON; CABRERA ZEE MD Venous Thromboembolism Antithrombotics Is Pt On Any Antithrombotics?: Yes KUSUM LONG MD Dec 18, 2017 12:21
[2017-12-18] MEDS ORDERED: ENOXAPARIN 100 MG/ML SYR ONE (13:17)
[2017-12-19] MEDS ORDERED: DILTIAZEM CD 180 MG CAPCR PO SCH (09:00)
== END 2017-12-18 13:50 | disposition home or self-care (01) | DRG 293 ==
LOC: ER 08:00 → INTOOBSV 10:44 → MED 10:44 → OBSVTOIN 12-17
PROVIDERS: ADMIT Internal Medicine; ATTEND Internal Medicine
DX: I11.0 Hypertensive heart disease with heart failure (principal); I50.21 Acute systolic (congestive) heart failure; I34.0 Nonrheumatic mitral (valve) insufficiency; I48.0 Paroxysmal atrial fibrillation; R09.02 Hypoxemia; I27.20 Pulmonary hypertension, unspecified; J84.10 Pulmonary fibrosis, unspecified; Z88.8 Allergy status to other drugs, medicaments and biological substances
CPT/HCPCS: 36415; 71046; 71275; 82040; 82247; 82310; 82374; 82435; 82565; 82947; 83880; 84075; 84132; 84155; 84295; 84443; 84450; 84460; 84484; 84520; 85025; 86635; 93005; 93306; 93880; 96365; 99285; G0378; J1940; J1956; J3490; J7050; Q9967

== ENCOUNTER → 2018-01-04 | Outpatient (CLI) | payer MEDICARE ==
[2017-12-17 10:33] VITALS: BMI 28.0
[~2018-01-04] MED LIST changes: +ACET500T68 PO; +DILT-145 PO; +ENOX100D5 SQ; +NAPR220C12 PO; +WARF5TAB23 PO
--- NOTE | 2018-01-04 15:39 | EKG ---
FACILITY: [facility] PATIENT NAME: KENNEDY PAUL : [id number] MR: [id number] V: [id number] EXAM DATE: ORDERING PHYSICIAN: DEDRICK VINSON TECHNOLOGIST: MARCIO Morales Reason : A-FIB \ ANTHONY Blood Pressure : / mmHG Vent. Rate : 046 BPM Atrial Rate : 046 BPM P-R Int : 134 ms QRS Dur : 098 ms QT Int : 486 ms P-R-T Axes : 081 083 079 degrees QTc Int : 425 ms Marked sinus bradycardia Possible left atrial enlargement Nonspecific ST abnormality, possible digitalis effect Abnormal ECG When compared with ECG of 16-DEC-2017 19:40, Previous ECG has undetermined rhythm, needs review ST no longer depressed in Inferior leads T wave inversion no longer evident in Inferior leads Confirmed by HOLDEN GIVENS ([id number]) on 01/04/2018 8:01:52 PM Referred By: KAREL Confirmed By:HOLDEN GIVENS
== END ==
LOC: RESP 15:26
PROVIDERS: ATTEND Nurse Practitioner Family
DX: I48.91 Unspecified atrial fibrillation (principal); R94.31 Abnormal electrocardiogram [ECG] [EKG]
CPT/HCPCS: 93005

== ENCOUNTER → 2018-01-20 | Outpatient (CLI) | payer MEDICARE ==
[2017-12-17 10:33] VITALS: BMI 28.0
--- NOTE | 2018-01-20 16:24 | RADIOLOGY IMAGING REPORT ---
FACILITY: [facility] [place] PATIENT NAME: Lemuel Marroquin : 1945 MR: [id number] V: [id number] EXAM DATE: ORDERING PHYSICIAN: CABRERA ZEE TECHNOLOGIST: [place] [facility] [place]: Lemuel Marroquin : 1945 Visit/Account:[id number] Date of Sevice: 01/20/2018 EXAMINATION: Single Isotope SPECT Imaging with Exercise and Gated SPECT Imaging DATE OF EXAMINATION: 01/20/18 DATE OF INTERPRETATION: 01/20/18 REQUESTING PHYSICIAN: CABRERA ZEE INDICATION: The patient is a 72-year-old female evaluated for afib. PROCEDURE: After informed consent the patient received an intravenous injection of 12.5 mCi of Tc-9 9m sestamibi followed at the appropriate time interval by rest imaging. The patient then exercised a ccording to the standard Mateus protocol for 10 minutes achieving 11 METS. Resting heart rate was 57 bpm with a peak heart rate of 134 bpm which is 89 % of maximal predicted heart rate for age. Blood pressure at rest was 188 / 104; blood pressure during exercise was 192 / 84. There was no chest pain during exercise. Exercise was discontinued because of fatigue. Baseline EKG demonstrates baseline ST segment depression. There were [address] depression EKG changes of ischemia at peak exerc ise. Approximately one minute and 30 seconds prior to the termination of exercise, the patient recei da an intravenous injection of 29.2 mCi of Tc-99m sestamibi followed by stress imaging. RAW DATA: Examination of the summed raw data revealed a Fair quality study. MYOCARDIAL PERFUSION: The tomographic images demonstrate Increased GI uptake but no evidence of infa rct or ishemia. GATED IMAGES: The gated images demonstrate normal wall motion, EF 65%. IMPRESSION: 1. Fair quality study with increase GI uptake. 2. Normal myocardial perfusion scan. 3. normal LV systolic function; LVEF 65%. 4. Based on the results of this exam, the patient appears to be at low risk for future cardiovascular events, but remains intermediate risk due to inability to exercise. Report Dictated By: Vini Wyatt at 01/20/2018 4:14 PM Report E-Signed By: Vini Wyatt at 01/20/2018 4:21 PM WSN:[id number]
--- NOTE | 2018-01-21 08:38 | RT STRESS TEST REPORT ---
FACILITY: [facility] PATIENT NAME: KENNEDY PAUL : [id number] MR: [id number] V: [id number] EXAM DATE: ORDERING PHYSICIAN: CABRERA ZEE TECHNOLOGIST: Archie Acquisition Time: 2018-01-20 14:23:21 Total Exercise Time: 00:10:00 Test Indications: afiib Medications: SEE NUCLEAR MED SHEET Protocol: COMLYBRUCE2 Max HR: 134 BPM 89% of Pred: 150 BPM Max BP: 192/084 mmHG Max Work Load: 11.4 METS see nuclear report Confirmed by GERONIMO WISEMAN ([id number]) on 01/21/2018 8:38:22 AM Referred By: Overread By: GERONIMO WISEMAN
== END ==
LOC: NUC 02:10
PROVIDERS: ATTEND Internal Medicine Cardiovascular Disease
DX: I48.0 Paroxysmal atrial fibrillation (principal)
CPT/HCPCS: 78452; 93017; A9500

== ENCOUNTER → 2018-05-28 | Outpatient (CLI) | payer MEDICARE ==
[2017-12-17 10:33] VITALS: BMI 28.0
--- NOTE | 2018-05-28 10:20 | RADIOLOGY IMAGING REPORT ---
FACILITY: [facility] PATIENT NAME: KENNEDY PAUL : [id number] MR: [id number] V: [id number] EXAM DATE: [id number] ORDERING PHYSICIAN: DEDRICK VINSON TECHNOLOGIST: Trena Mccauley PROCEDURE:BILATERAL DIGITAL SCREENING MAMMOGRAM WITH CAD ASSISTED INTERPRETATION & 3D TOMOSYNTHESIS COMPARISON:Prior mammograms 02/12/17, 12/04/15, 11/14/14, 11/02/14, 12/28/12, 12/17/12. INDICATIONS:SCREENING FINDINGS: Moderately dense fibroglandular tissue is seen throughout the breasts. The Left breast is smaller than the Right which is a stable finding. There is no evidence of malignant appearing mass, malignant appearing calcifications or other secondary sign of malignancy in either breast. DIAGNOSTIC CATEGORY 1--NEGATIVE. RECOMMENDATIONS: ROUTINE MAMMOGRAM AND CLINICAL EVALUATION. IMPRESSION: BIRADS 1: Negative. No significant abnormality is seen. Dictated by: Stacie Sandoval M.D. on 05/28/2018 at 9:08 Transcribed by: WALE on 05/28/2018 at 9:39 Approved by: Stacie Sandoval M.D. on 05/28/2018 at 10:19 [facility]
== END ==
LOC: MAMO 02:30
PROVIDERS: ATTEND Nurse Practitioner Family
DX: Z12.31 Encounter for screening mammogram for malignant neoplasm of breast (principal)
CPT/HCPCS: 77063; 77067

== ENCOUNTER → 2019-02-01 | Outpatient (CLI) | payer MEDICARE ==
[2017-12-17 10:33] VITALS: BMI 28.0
== END ==
LOC: LAB 08:41
PROVIDERS: ATTEND Internal Medicine
DX: I48.0 Paroxysmal atrial fibrillation (principal)
CPT/HCPCS: 36415; 82310; 82374; 82435; 82565; 82947; 84132; 84295; 84520; 85027

== ENCOUNTER 2019-05-10 13:26 | Emergency (ER) | payer MEDICARE ==
[2017-12-17 10:33] VITALS: Wt 72.6 kg
[~2019-05-10 13:26] MED LIST changes: -MAGN400T10 PO
--- NOTE | 2019-05-10 13:47 | ER Report ---
History and Physical Time Seen By MD: 13:31 Hx. of Stated Complaint: SENT BY PCP. STATES "I'M IN A FIB AND WON'T GO OUT". SYMPTOMS BEGAN THIS AM. HPI/ROS CHIEF COMPLAINT: Atrial fibrillation HISTORY OF PRESENT ILLNESS: This is a 73-year-old female presents to the emergency room for A. fib. Patient states that she was diagnosed with atrial fibrillation approximately 2 years ago, she's had 2 ablations since then, the mo st recent one in January of this year. She states over the last couple of weeks she's had intermittent shortness of breath typically associated with exertion. She denies chest pain, no nausea or vomiting. No headaches or lightheadedness. No fevers or rashes. She states that today she went in to talk to her primary care provider about some epigastric pain that she was having, she thought maybe she had a hernia, her PCP did a KUB x-ray, showing constipation. While she was at her PCPs office they noted that she was in A. fib at a rapid rate in the 130s and 40s, subsequently sent to the ER for evaluation. She has no other complaints at this time. REVIEW OF SYSTEMS: Constitutional: No fever, no chills. Eyes: No discharge. ENT: No sore throat. Cardiovascular: As above. Respiratory: As above. Gastrointestinal: No abdominal pain, no vomiting. Genitourinary: No hematuria. Musculoskeletal: No back pain. Skin: No rashes. Neurological: No headache. Allergies: Coded Allergies: nitrofurazone (Verified Adverse Reaction, Severe, FINGER SWELLS, EYES ITCH, 05/10/19) Home Meds Active Scripts Magnesium Oxide (Magnesium) 400 Mg Tablet, 1 TAB PO DAILY for 30 Days, #30 TAB- CAP Prov:TED ALLEN [employer]-BC 05/10/19 Diltiazem Hcl (CARDIZEM CD) 180 Mg Cap.er.24h, 180 MG PO DAILY for 30 Days, #30 CAP.SR.24H Prov:TED ALLEN [employer]-BC 05/10/19 Warfarin Sodium (WARFARIN SODIUM) 5 Mg Tablet, 5 MG PO HS, #30 TAB Prov:KUSUM LONG MD 12/18/17 Enoxaparin Sodium (LOVENOX) 100 Mg/1 Ml Disp.syrin, 100 MG SQ DAILY, #3 1 Refill Prov:KUSUM LONG MD 12/18/17 Reported Medications Acetaminophen (TYLENOL EXTRA STRENGTH) 500 Mg Tablet, 500 MG PO HS, TAB 12/16/17 Vit C/Vit E/Lutein/Min/Shirley-3 (Ocuvite Softgel) 1 Each Capsule, 1 EACH PO QDAY 01/17/13 Cyanocobalamin (B12 Health Booster) 1,000 Mcg/15 Ml Oral.susp, 1000 MCG PO QDAY 01/17/13 Echinacea (Echinacea) 400 Mg Capsule, 400 MG PO BID 01/17/13 Vitamin E (Vitamin E) 400 Unit Capsule, 400 UNIT PO QDAY 01/17/13 Lysine (L-Lysine) 500 Mg Capsule, 500 MG PO BID 01/17/13 Biotin (BIOTIN (PT OWN)) 300 Mcg Tab, 300 MCG PO QDAY 01/17/13 Multivitamins W-Minerals (Multiple Vitamin) 1 Tab Tablet, 1 TAB PO QDAY 01/17/13 Omeprazole Magnesium (Prilosec Otc) 20 Mg Tablet.dr, 20 MG PO QDAY 01/17/13 Discontinued Scripts Diltiazem Hcl (CARDIZEM CD) 180 Mg Cap.er.24h, 360 MG PO QDAY, #30 Prov:KUSUM LONG MD 12/18/17 Past Medical/Surgical History The patient has a past medical and surgical history of atrial fibrillation, tube lesions, menopause, arthritis, appendectomy, tubal ligation, tonsillectomy. Reviewed Nurses Notes: Yes Hx Smoking: No Exposure to Second Hand Smoke?: Yes Hx Substance Use Disorder: No Hx Alcohol Use: Yes Constitutional Vital Sign - Last 24 Hours 05/10/19 05/10/19 05/10/19 05/10/19 13:30 13:33 13:35 13:45 Temp 98.4 Pulse 132 144 Resp 18 B/P (MAP) 149/92 149/92 (111) 138/109 (119) 130/99 (109) Pulse Ox 90 O2 Delivery Room Air 05/10/19 05/10/19 05/10/19 05/10/19 13:56 14:00 14:26 14:30 Pulse 113 98 Resp 15 11 B/P (MAP) 141/104 (116) 126/104 (111) Pulse Ox 96 93 05/10/19 05/10/19 05/10/19 05/10/19 14:35 14:45 14:45 15:00 Pulse 110 Resp 13 B/P (MAP) 116/95 (102) 123/102 (109) Pulse Ox 94 O2 Flow Rate 2.0 05/10/19 05/10/19 05/10/19 05/10/19 15:05 15:15 15:30 15:35 Pulse 92 124 Resp 13 20 B/P (MAP) 120/91 (101) 128/75 (92) Pulse Ox 93 94 05/10/19 15:45 B/P (MAP) 139/111 (120) Physical Exam General Appearance: The patient is alert, has no immediate need for airway protection and no signs of toxicity. Eyes: Pupils equal and round no pallor or injection. ENT, Mouth: Mucous membranes are moist. Respiratory: There are no retractions, lungs are clear to auscultation. Cardiovascular: Irregular rate and rhythm, no murmurs, clicks or rubs. Gastrointestinal: Abdomen is soft and non tender, no masses, bowel sounds normal. Neurological: Alert and oriented 4. Moving all extremities. Following all commands. No focal neuro deficits. Skin: Warm and dry, no rashes. Musculoskeletal: Neck is supple non tender. Extremities are nontender, nonswollen and have full range of motion. DIFFERENTIAL DIAGNOSIS: After history and physical exam differential diagnosis was considered for atrial fibrillation, myocardial infarction, pulmonary embolus, pneumonia. Medical Decision Making Data Points Result Diagram: 05/10/19 1332 05/10/19 1332 Laboratory Hematology Test 05/10/19 13:32 White Blood Count 6.5 k/uL (4.5-11.0) Red Blood Count 4.26 M/uL (4.17-5.56) Hemoglobin 13.6 g/dL (12.0-16.0) Hematocrit 39.8 % (34.0-47.0) Mean Corpuscular Volume 93.4 fL (80.0-96.0) Mean Corpuscular Hemoglobin 31.9 pg (26.0-33.0) Mean Corpuscular Hemoglobin Concent 34.1 g/dL (32.0-36.0) Red Cell Distribution Width 14.5 % (11.5-14.5) Platelet Count 224 K/uL (150-450) Mean Platelet Volume 7.9 fL (7.2-11.1) Neutrophils (%) (Auto) 60.0 % (39.4-72.5) Lymphocytes (%) (Auto) 30.5 % (17.6-49.6) Monocytes (%) (Auto) 7.4 % (4.1-12.4) Eosinophils (%) (Auto) 1.3 % (0.4-6.7) Basophils (%) (Auto) 0.8 % (0.3-1.4) Nucleated RBC Relative Count (auto) 0.0 /100WBC Neutrophils # (Auto) 3.9 K/uL (2.0-7.4) Lymphocytes # (Auto) 2.0 K/uL (1.3-3.6) Monocytes # (Auto) 0.5 K/uL (0.3-1.0) Eosinophils # (Auto) 0.1 K/uL (0.0-0.5) Basophils # (Auto) 0.1 K/uL (0.0-0.1) Nucleated RBC Absolute Count (auto) 0.00 K/uL Chemistry Test 05/10/19 13:32 05/10/19 13:33 Sodium Level 143 mmol/L (137-145) Potassium Level 3.7 mmol/L (3.5-5.0) Chloride Level 106 mmol/L (98-107) Carbon Dioxide Level 27 mmol/L (22-31) Blood Urea Nitrogen 13 mg/dl (7-18) Creatinine 0.90 mg/dl (0.52-1.04) Glomerular Filtration Rate Calc > 60.0 Random Glucose 101 mg/dl (75-110) Calcium Level 9.3 mg/dl (8.4-10.2) Total Bilirubin 0.9 mg/dl (0.2-1.3) Aspartate Amino Transf (AST/SGOT) 81 U/L (0-35) Alanine Aminotransferase (ALT/SGPT) 162 U/L (0-56) Alkaline Phosphatase 126 U/L (0-126) Total Protein 6.6 g/dl (6.3-8.2) Albumin 4.1 g/dl (3.5-5.0) Magnesium Level 1.5 mg/dl (1.7-2.2) Coagulation Test 05/10/19 13:32 Prothrombin Time 32.5 seconds (12.0-14.4) Prothromb Time International Ratio 3.08 Activated Partial Thromboplast Time 38 seconds (23-35) EKG/Imaging EKG Interpretation 12 lead EKG: Time of EKG 1341. Rhythm: Atrial fibrillation, ventricular rate 134 bpm. [place]: normal QRS: normal ST segments: No ST depression or elevation identified. No EKGs with atrial fibrillation on file, however the patient states this started in 2016, has intermittent episodes, last EKG on file 01/04/2018 showing sinus bradycardia. Imaging PATIENT NAME: Lemuel Marroquin : 1945 MR: [id number] V: [id number] EXAM DATE: ORDERING PHYSICIAN: DEDRICK VINSON TECHNOLOGIST: Location: [facility] Patient: Lemuel Marroquin : 1945 Visit/Account:[id number] Date of Sevice: 05/10/2019 Abdomen single view: HISTORY: Upper abdominal pain x3 weeks COMPARISON: None FINDINGS: Supine view was obtained of the abdomen. Bowel gas pattern is nonspecific without evidence of ileus, obstruction or free air. Moderate amount stool is present in the colon, query symptoms of constipation. Lumbar scoliosis convex to the right is present. Degenerative changes present in the lumbar spine. IMPRESSION: Nonspecific bowel gas pattern. There is no evidence of ileus or obstruction. Moderate stool in the colon may be indicative of constipation, clinically correlate. Report Dictated By: Dalia Singh MD at 05/10/2019 10:52 AM Report E-Signed By: Dalia Singh MD at 05/10/2019 10:58 AM WSN:[email or web address] ED Course/Re-evaluation Clinical Indication for ER IV: Hydration, IV Access ED Course The patient was admitted to room. A history and physical obtained. Differential diagnoses were considered. An IV was started. A CBC, CMP were obtained. CBC unremarkable, chemistry showing magnesium 1.5, did replete with 2 g IV and easy him, AST 81, ALT 162 when compared to the patient's historical data that we have on file, this is elevated, INR 3.08. The patient is no longer on metoprolol or diltiazem she had an ablation January 2019. She was given 20 mg IV diltiazem, heart rate did improve, down from the 130s to 100-110. This was followed by 120 mg extended release diltiazem. She is currently anticoagulated on Coumadin, as her INR is slightly above therapeutic and she's been taking extra doses over the last couple of days, I did tell her to take half the normal dose tonight and start with her regular dose tomorrow she will have a repeat AST, ALT and INR on Thursday. The results will be to Delia George. I also instructed her to stop drinking the nightly wine and reconsider her Tylenol that she takes nightly for her arthritis, or at least reducing the dose. We did talk about some topical pain relief versus oral pain relief medications. She states she is unsure of any history of elevated liver enzymes, she will follow-up with her primary care on Thursday for reevaluation she is also instructed to follow-up with her workplace relations adviser as soon as possible for reevaluation, I did start her on 180 mg by mouth diltiazem. The patient was in agreement with this plan of care, had no other questions or concerns at this time and discharged home. She was also given a prescription for magnesium. Decision to Disposition Date: May 10, 2019 Decision to Disposition Time: 15:45 Depart Departure Latest Vital Signs Vital Signs Date Time Temp Pulse Resp B/P (MAP) Pulse Ox O2 Delivery O2 Flow Rate FiO2 05/10/19 15:45 139/111 (120) 05/10/19 15:35 124 20 94 05/10/19 14:45 2.0 05/10/19 13:30 98.4 Room Air Impression: Primary Impression: Atrial fibrillation with rapid ventricular response Additional Impressions: Elevated liver enzymes Constipation Condition: Improved Disposition: HOME OR SELF-CARE Referrals: DEDRICK VINSON (PCP) 5 Days CABRERA ZEE MD 1 Week New Scripts Magnesium Oxide (Magnesium) 400 Mg Tablet 1 TAB PO DAILY for 30 Days, #30 TAB-CAP Prov: TED ALLEN-BC 05/10/19 Diltiazem Hcl (CARDIZEM CD) 180 Mg Cap.er.24h 180 MG PO DAILY for 30 Days, #30 CAP.SR.24H Prov: TED ALLEN-BC 05/10/19 Patient Instructions: A-fib (Atrial Fibrillation) (ED), Diltiazem (AFib) Additional Instructions: Your liver enzymes were elevated today, please stop drinking the nightly wine, have your liver enzymes and your INR repeated this thursday and results to Delia. Your INR was 3.08 today, please take half of your coumadin dose this evening then your normal dosing tomorrow. Drink plenty of water. You may want to discuss alternatives to Tylenol for your arthritis with Delia too. Follow up with Dr. Zee, cardiology as soon as possible. I am starting you back on Diltiazem, 180mg a day. Please follow up with Delia and/or Dr. Zee for continuation of this medication. Get plenty of rest. When moving from a sitting to standing position, please do this slowly. Return to the ED for any other concerns or worsening symptoms. Your magnesium was slightly low as well, I sent a prescription for 400 mg tablet once a day earlier pharmacy, please discuss this with Delia as well. Was also noted you had constipation on the x-rays of her abdomen, be sure to drink plenty of water, I would also recommend starting with a half Of MiraLAX once a day, you can also take an [id number] stool softener. Problem Qualifiers Additional Impressions: Constipation Constipation type: unspecified constipation type Qualified Codes: K59.00 - Constipation, unspecified TED ALLEN [employer] ST[employer]GR[employer]HER- May 10, 2019 13:47
[2019-05-10] MEDS ORDERED: NS(*) 0.9% 500 ML BAG 500 ML IV ONE (14:01)
[2019-05-10] MEDS ORDERED: DILTIAZEM 5 MG/ML 5ML IVPUSH IVP ONE (14:05)
[2019-05-10 14:10] LABS: PLATELET COUNT, AUTOMATED 224 K/uL (150-450)
[2019-05-10 14:15] LABS: INR 3.08
[2019-05-10] MEDS ORDERED: MAGNESIUM SUL* 2 GM/50 ML IVPB 50 ML IVPB ONE (14:35)
--- NOTE | 2019-05-10 14:54 | EKG ---
[place] [facility] [place] KENNEDY PAUL : [id number] MR: [id number] V: [id number] EXAM DATE: ORDERING PHYSICIAN: CUATE ALLEN TECHNOLOGIST: SHARON Test Reason : A FIB Blood Pressure : / mmHG Vent. Rate : 134 BPM Atrial Rate : 300 BPM P-R Int : 000 ms QRS Dur : 088 ms QT Int : 346 ms P-R-T Axes : 000 062 254 degrees QTc Int : 516 ms Atrial fibrillation with RVR Anterior infarct (cited on or before 10-MAY-2019) ST and T wave abnormality, consider inferior ischemia Abnormal ECG When compared with ECG of 10-MAY-2019 10:32, No significant change was found Confirmed by Cesar Call ([id number]) on 05/10/2019 8:38:28 PM Referred By: Cuate Confirmed By:Cesar Woods
[2019-05-10] MEDS ORDERED: DILTIAZEM CD 120 MG CAPCR PO ONE (15:05)
[2019-05-10 15:45] VITALS: BP 139/111
[2019-05-10] MEDS ORDERED: DILT-145 PO (15:56)
[2019-05-10] MEDS ORDERED: MAGN400T10 PO (16:02)
== END 2019-05-10 16:11 | disposition home or self-care (01) ==
LOC: ER 13:49
DX: I48.2 Chronic atrial fibrillation (principal); Z79.01 Long term (current) use of anticoagulants; R06.02 Shortness of breath; K59.00 Constipation, unspecified; M19.90 Unspecified osteoarthritis, unspecified site; Z79.899 Other long term (current) drug therapy; Z77.22 Contact with and (suspected) exposure to environmental tobacco smoke (acute) (chronic)
CPT/HCPCS: 83735; 85025; 85610; 85730; 93005; 96374; 96375; 99284; A9270; J3475; J3490; J7040; 82040; 82247; 82310; 82374; 82435; 82565; 82947; 84075; 84132; 84155; 84295; 84450; 84460; 84520

== ENCOUNTER → 2019-05-10 | Outpatient (CLI) | payer MEDICARE ==
[2017-12-17 10:33] VITALS: BMI 28.0
[~2019-05-10] MED LIST changes: +MAGN400T10 PO
--- NOTE | 2019-05-10 10:55 | EKG ---
FACILITY: [facility] PATIENT NAME: KENNEDY PAUL : [id number] MR: [id number] V: [id number] EXAM DATE: ORDERING PHYSICIAN: DEDRICK VINSON TECHNOLOGIST: MARCIO Morales Reason : ABD PAIN \ A-FIB Blood Pressure : / mmHG Vent. Rate : 139 BPM Atrial Rate : 326 BPM P-R Int : 000 ms QRS Dur : 088 ms QT Int : 306 ms P-R-T Axes : 000 070 -76 degrees QTc Int : 465 ms Atrial fibrillation with rapid ventricular response with premature ventricular or aberrantly conducte d complexes Possible Anterior infarct , age undetermined Abnormal ECG When compared with ECG of 04-JAN-2018 15:34, Atrial fibrillation has replaced Sinus rhythm Vent. rate has increased BY 93 BPM Confirmed by Cesar Call ([id number]) on 05/10/2019 8:36:19 PM Referred By: KAREL / Renetta Confirmed By:Cesar Woods
--- NOTE | 2019-05-10 11:06 | RADIOLOGY IMAGING REPORT ---
FACILITY: [facility] PATIENT NAME: Lemuel Marroquin : 1945 MR: [id number] V: [id number] EXAM DATE: ORDERING PHYSICIAN: DEDRICK VINSON TECHNOLOGIST: Location: [facility] Patient: Lemuel Marroquin : 1945 Visit/Account:[id number] Date of Sevice: 05/10/2019 Abdomen single view: HISTORY: Upper abdominal pain x3 weeks COMPARISON: None FINDINGS: Supine view was obtained of the abdomen. Bowel gas pattern is nonspecific without evidence of ileus, obstruction or free air. Moderate amount stool is present in the colon, query symptoms of constipation. Lumbar scoliosis convex to the right is present. Degenerative changes present in the lumbar spine. IMPRESSION: Nonspecific bowel gas pattern. There is no evidence of ileus or obstruction. Moderate s tool in the colon may be indicative of constipation, clinically correlate. Report Dictated By: Dalia Singh MD at 05/10/2019 10:52 AM Report E-Signed By: Dalia Singh MD at 05/10/2019 10:58 AM WSN:[email or web address]
== END ==
LOC: RAD 10:11
PROVIDERS: ATTEND Nurse Practitioner Family
DX: R94.31 Abnormal electrocardiogram [ECG] [EKG] (principal); R10.9 Unspecified abdominal pain; I48.91 Unspecified atrial fibrillation; I49.9 Cardiac arrhythmia, unspecified
CPT/HCPCS: 74018; 93005